=== PATIENT | female | born 1960 | race Caucasian/White ===

== ENCOUNTER 2020-03-30 18:04 | Inpatient (IN) | payer BC, OTHER ==
[~2020-03-30] VITALS: Ht 157.5 cm; Wt 87.3 kg
--- NOTE | 2020-03-30 18:27 | NUR ---
BIB EMS FOR SOB THAT STARTED TODAY, EMS REPORTS SPO2 35% AND UNRESPONSIVE. PT ON CPAP PER EMS. PT ON BIPAP A&OX4. TOLERATING WELL, RR RAPID 43. REPORTS NO OTHER MEDICAL HX OTHER THAN METH USE. PT IN BED IN [facility] WITH CONT BENDER MACHINE, SPO2, BP Q 30 MIN, SIDE RAILS UP X2, CALL LIGHT IN REACH. WENT OVER PLAN OF CARE FROM ORDER LIST, AGREEWS TO PLAN OF CARE. XRAY IN ROOM . LAB IN ROOM.
[2020-03-30] MEDS ORDERED: SODIUM CHLORIDE FLUSH 10ML SYR IVF ONE (18:30)
[2020-03-30] MEDS ORDERED: SODIUM CHLORIDE 0.9% 1,000ML IVBOLUS ONE ×2 (19:00→20:30)
--- NOTE | 2020-03-30 19:01 | NUR ---
RECEIVED REPORT from day shift RN. pt a&ox4, requesting water. on bipap 25/11 100% o2. sats 97%, hyppotensive. RR 48bpm, diminished bs bilaterally. waiting on redraw of ABG
[2020-03-30 19:07] LABS: ALANINE AMINOTRANSFERASE 16 U/L (12-78); ALBUMIN 2.4 g/dL (3.4-5.0); ANION GAP 10 mmol/L (5-15); CALCIUM 7.7 mg/dL (8.5-10.1); CHLORIDE 108 mmol/L (98-107); CREATININE 1.73 mg/dL (0.55-1.02)
[2020-03-30 19:11] LABS: ALKALINE PHOSPHATASE 86 U/L (45-117); BILIRUBIN,TOTAL 0.6 mg/dL (0.2-1.0); TOTAL PROTEIN 6.5 g/dL (6.4-8.2); TROPONIN I 0.116 ng/mL (0.000-0.045)
[2020-03-30 19:13] LABS: BASOPHILS % (AUTO) 0 % (0-1); EOSINOPHILS % (AUTO) 0 % (1-7); LYMPHOCYTES % (AUTO) 13 % (22-44); MEAN CORPUSCULAR HEMOGLOBIN 28.7 pg (27.0-34.8); MEAN CORPUSCULAR HGB CONC 33.4 g/dL (32.4-35.8); MEAN PLATELET VOLUME 9.6 fL (7.4-10.4); MONOCYTES % (AUTO) 5 % (2-9); NEUTROPHILS % (AUTO) 82 % (42-75); PLATELET COUNT 250 x10^3/uL (130-400); RED BLOOD COUNT 4.62 x10^6/uL (3.82-5.3); RED CELL DISTRIBUTION WIDTH 13.4 % (9.6-15.2)
[2020-03-30 19:14] LABS: MD NO
--- NOTE | 2020-03-30 19:20 | NUR ---
PT requested we talk to roommate and update to situation. roommate updated via phone. pt a&ox4 at this time. on bipap
--- NOTE | 2020-03-30 19:30 | NUR ---
MD to bedside to assess pts status. pt assisted to sit up in bed. per MD, to give more ivf, for hypotensive BP. 96/67. piv intact, and flushes easy to left hand, and to right hand.
--- NOTE | 2020-03-30 19:35 | NUR ---
lab to bedside to re draw the ABG.
[2020-03-30] MEDS ORDERED: CEFTRIAXONE PMX 1GM/50ML 50 ML ONE (19:49)
[2020-03-30] MEDS ORDERED: CEFTRIAXONE PMX 1GM/50ML 50 ML IVPB ONE (20:00)
[2020-03-30] MEDS ORDERED: AZITHROMYCIN 500 MG in SODIUM CHLORIDE 0.9% 250 ML IVPB ONE (20:00)
--- NOTE | 2020-03-30 20:26 | NUR ---
MD updated to pts bp, 2nd liter of NS fluids hung, and antibiotics hung. pt awake and sitting up in bed. hypotensive, but good HR. MD aware.
--- NOTE | 2020-03-30 20:28 | NUR ---
pt sitting up, in position of comfort, says she wants to go home, and when will we be done with treatment. reoriented her to the treatment and need to stay in hospital for further evaluation. she verbalized understanding.
[2020-03-30] MEDS ORDERED: SODIUM CHLORIDE FLUSH 10ML SYR IVF PRN (20:30)
--- NOTE | 2020-03-30 20:56 | NUR ---
pt sleeping in bed. on cr monitor, tachypnea, but moving good air and good aeration. 96% on o2 sat monitor. remains on bipap
[2020-03-30] MEDS ORDERED: PROMETHAZINE 25 MG/ML, 1ML IM PRN (21:00)
[2020-03-30] MEDS: SODIUM CHLORIDE 0.9% 1,000 ML IV SCH (21:00)
[2020-03-30] MEDS ORDERED: ONDANSETRON 2MG/ML, 2ML IVPush PRN (21:00)
[2020-03-30] MEDS ORDERED: ONDANSETRON ODT 4 MG PO PRN (21:00)
[2020-03-30] MEDS ORDERED: BISACODYL 10 MG SUPP PR PRN (21:00)
[2020-03-30] MEDS ORDERED: morphine SULFATE 10 MG/ML, 1ML IVPush PRN (21:00)
[2020-03-30] MEDS ORDERED: FAMOTIDINE 20 MG/2 ML IVPush SCH (21:00)
[2020-03-30] MEDS ORDERED: DOCUSATE 100 MG CAPSULE PO PRN (21:00)
[2020-03-30] MEDS ORDERED: hydrALAzine 20 MG/ML, 1ML IVPush PRN (21:00)
--- NOTE | 2020-03-30 21:10 | NUR ---
pt to be admitted to ICU. resting in position of comfort. airway open, and good aeration and oxygenation on continuous bipap. on cr monitor. remains tachypneic.
[2020-03-30] MEDS ORDERED: ENOXAPARIN 40 MG/0.4 ML ONE (21:17)
[2020-03-30] MEDS ORDERED: FAMOTIDINE 20 MG/2 ML ONE (21:17)
[2020-03-30] MEDS ORDERED: DEXAMETHASONE 4 MG/ML, 1ML ONE (21:17)
[2020-03-30] MEDS: DEXAMETHASONE 4 MG/ML, 1ML IVPush SCH (21:22)
[2020-03-30] MEDS: ENOXAPARIN 40 MG/0.4 ML SQ SCH (21:25)
--- NOTE | 2020-03-30 21:33 | NUR ---
ICU MD to eval pt and speak with her. pt sitting in position of comfort in [facility], on cr monitor, continues with tachypnea. o2 sats 95% on bipap. meds given.
--- NOTE | 2020-03-30 22:15 | NUR ---
pt awake and alert, bedpan provided and pt voided x1. clear, yellow urine, large amount. PIV site intact,no redness or swelling. ivf on tko rate only. pt remains on bipap
[2020-03-30] MEDS: ASCORBIC ACID 500 MG TABLET PO SCH (23:14)
[2020-03-31 00:49] LABS: RAPID INFLUENZA A Negative (Negative); RAPID INFLUENZA B Negative (Negative)
[2020-03-31 04:05] LABS: MICROSCOPIC INDICATED
[2020-03-31 04:10] LABS: AMPHETAMINE SCREEN, URINE Positive (Negative); BARBITURATE SCREEN, URINE Negative (Negative); BENZODIAZEPINE SCREEN, URINE Negative (Negative); CANNABINOID SCREEN, URINE Negative (Negative); COCAINE SCREEN, URINE Negative (Negative); METHADONE SCREEN, URINE Negative (Negative); OPIATE SCREEN, URINE Negative (Negative)
[2020-03-31 04:33] LABS: BASOPHILS % (AUTO) 0 % (0-1); EOSINOPHILS % (AUTO) 0 % (1-7); LYMPHOCYTES % (AUTO) 11 % (22-44); MEAN CORPUSCULAR HEMOGLOBIN 29.3 pg (27.0-34.8); MEAN PLATELET VOLUME 9.5 fL (7.4-10.4); MONOCYTES % (AUTO) 3 % (2-9); NEUTROPHILS % (AUTO) 86 % (42-75); PLATELET COUNT 249 x10^3/uL (130-400); RED BLOOD COUNT 4.35 x10^6/uL (3.82-5.3); RED CELL DISTRIBUTION WIDTH 13.7 % (9.6-15.2)
[2020-03-31 04:39] LABS: ALBUMIN 2.3 g/dL (3.4-5.0); ANION GAP 8 mmol/L (5-15); CALCIUM 7.7 mg/dL (8.5-10.1); CHLORIDE 110 mmol/L (98-107)
[2020-03-31 04:42] LABS: MD NO
[2020-03-31 04:49] LABS: ALANINE AMINOTRANSFERASE 16 U/L (12-78); ALKALINE PHOSPHATASE 84 U/L (45-117); BILIRUBIN,TOTAL 0.4 mg/dL (0.2-1.0); CHOL/HDL RATIO 6.1; CHOLESTEROL, TOTAL 140 mg/dL (140-239); CREATININE 1.16 mg/dL (0.55-1.02); HDL CHOL % 16 % (28-40); HDL CHOLESTEROL (DIRECT) 23 mg/dL (40-60); LDL CHOLESTEROL,CALCULATED 81 mg/dL (54-169); LDL/HDL RATIO 3.5 (0.5-3.0); TOTAL PROTEIN 6.5 g/dL (6.4-8.2); TRIGLYCERIDES 180 mg/dL (50-200); VLDL CHOLESTEROL 36 mg/dL (0-25)
[2020-03-31] MEDS: ENOXAPARIN 40 MG/0.4 ML SQ SCH ×2 (09:00→21:06)
[2020-03-31] MEDS ORDERED: MIDAZOLAM 1 MG/ML, 5ML ONE ×3 (10:33→16:29)
[2020-03-31] MEDS ORDERED: ETOMIDATE 20 MG/10 ML IVPush ONE (11:20)
[2020-03-31] MEDS ORDERED: MIDAZOLAM 1 MG/ML, 5ML IVPush ONE ×2 (11:20→12:30)
[2020-03-31] MEDS: PROPOFOL 100 ML IV PRN ×4 (11:45→22:44)
[2020-03-31] MEDS: SODIUM CHLORIDE 0.9% 1,000 ML IV SCH (11:55)
[2020-03-31] MEDS ORDERED: LIDOCAINE-MPF 1%, 2ML ENDO PRN (12:00)
[2020-03-31] MEDS ORDERED: PHARMACY MAY ADJ FOR RENAL FX MC SCH (12:00)
[2020-03-31] MEDS ORDERED: FENTANYL PF 1,000 MCG in SODIUM CHLORIDE 0.9% 80 ML IV PRN (12:30)
[2020-03-31] MEDS: ZINC SULFATE 220 MG CAPSULE PO SCH (13:33)
[2020-03-31] MEDS: ASCORBIC ACID 500 MG TABLET PO SCH ×3 (13:34→21:05)
[2020-03-31] MEDS: PANTOPRAZOLE 40 MG IV IV SCH (13:37)
--- NOTE | 2020-03-31 15:35 | NUR ---
TF: Vital HP: goal on propofol: 45 ml/hr, off propofol: 55 ml/hr Addendum: 03/31/20 at [address] Amended: Links added.
[2020-03-31] MEDS: FENTANYL PF 1,000 MCG in SODIUM CHLORIDE 0.9% 80 ML IV PRN (15:45)
[2020-03-31] MEDS: CHOLECALCIFEROL 5,000u TAB PO SCH (15:45)
[2020-03-31] MEDS ORDERED: PROPOFOL 10 MG/ML, 100ML IV ONE (16:29)
[2020-03-31] MEDS ORDERED: ETOMIDATE 20 MG/10 ML ONE (16:29)
[2020-03-31] MEDS: AZITHROMYCIN 500 MG in SODIUM CHLORIDE 0.9% 250 ML IV SCH (18:25)
[2020-03-31] MEDS ORDERED: PHENYLEPHRINE 50 MG in SODIUM CHLORIDE 0.9% 245 ML IV PRN (18:30)
[2020-03-31] MEDS: THIAMINE 100 MG in SODIUM CHLORIDE 0.9% 50 ML IV SCH (18:55)
[2020-03-31] MEDS: CEFTRIAXONE PMX 1GM/50ML 50 ML IV SCH (21:05)
[2020-03-31] MEDS: DEXAMETHASONE 4 MG/ML, 1ML IVPush SCH (21:06)
[2020-04-01] MEDS: PROPOFOL 100 ML IV PRN ×5 (03:48→21:03)
[2020-04-01 05:30] LABS: BASOPHILS % (AUTO) 0 % (0-1); EOSINOPHILS % (AUTO) 0 % (1-7); LYMPHOCYTES % (AUTO) 10 % (22-44); MD NO; MEAN CORPUSCULAR HEMOGLOBIN 29.3 pg (27.0-34.8); MEAN CORPUSCULAR HGB CONC 33.8 g/dL (32.4-35.8); MEAN PLATELET VOLUME 9.4 fL (7.4-10.4); MONOCYTES % (AUTO) 5 % (2-9); NEUTROPHILS % (AUTO) 86 % (42-75); PLATELET COUNT 263 x10^3/uL (130-400); RED BLOOD COUNT 4.22 x10^6/uL (3.82-5.3); RED CELL DISTRIBUTION WIDTH 13.7 % (9.6-15.2)
[2020-04-01 05:34] LABS: ANION GAP 6 mmol/L (5-15); CALCIUM 8.2 mg/dL (8.5-10.1); CHLORIDE 113 mmol/L (98-107); CREATININE 0.81 mg/dL (0.55-1.02)
[2020-04-01] MEDS: FENTANYL PF 1,000 MCG in SODIUM CHLORIDE 0.9% 80 ML IV PRN ×2 (08:35→23:46)
[2020-04-01] MEDS ORDERED: PHARMACY INSTRUCTION MC PRN (09:00)
[2020-04-01] MEDS ORDERED: REMDESIVIR 200 MG in SODIUM CHLORIDE 0.9% 250 ML IVPB ONE (10:00)
[2020-04-01] MEDS: ENOXAPARIN 40 MG/0.4 ML SQ SCH ×2 (11:58→21:00)
[2020-04-01] MEDS: ASCORBIC ACID 500 MG TABLET PO SCH ×3 (11:58→21:07)
[2020-04-01] MEDS: CHOLECALCIFEROL 5,000u TAB PO SCH (11:58)
[2020-04-01] MEDS: ZINC SULFATE 220 MG CAPSULE PO SCH (11:58)
[2020-04-01] MEDS ORDERED: VECURONIUM 10 MG IVPush ONE (14:30)
[2020-04-01] MEDS: PANTOPRAZOLE 40 MG IV IV SCH (15:16)
[2020-04-01] MEDS: VECURONIUM 50 MG in SODIUM CHLORIDE 0.9% 50 ML IV PRN ×2 (15:52→21:38)
[2020-04-01] MEDS: AZITHROMYCIN 500 MG in SODIUM CHLORIDE 0.9% 250 ML IV SCH (17:41)
[2020-04-01] MEDS: THIAMINE 100 MG in SODIUM CHLORIDE 0.9% 50 ML IV SCH (17:41)
[2020-04-01] MEDS: CEFTRIAXONE PMX 1GM/50ML 50 ML IV SCH (21:06)
[2020-04-01] MEDS: DEXAMETHASONE 4 MG/ML, 1ML IVPush SCH (21:07)
[2020-04-02] MEDS: PROPOFOL 100 ML IV PRN ×6 (00:26→23:17)
[2020-04-02 04:24] LABS: PROTHROMBIN TIME 10.6 Seconds (9.6-11.5)
[2020-04-02 04:25] LABS: BASOPHILS % (AUTO) 0 % (0-1); EOSINOPHILS % (AUTO) 0 % (1-7); LYMPHOCYTES % (AUTO) 10 % (22-44); MEAN CORPUSCULAR HEMOGLOBIN 29.7 pg (27.0-34.8); MEAN CORPUSCULAR HGB CONC 33.6 g/dL (32.4-35.8); MEAN PLATELET VOLUME 9.4 fL (7.4-10.4); MONOCYTES % (AUTO) 5 % (2-9); NEUTROPHILS % (AUTO) 85 % (42-75); PLATELET COUNT 248 x10^3/uL (130-400); RED BLOOD COUNT 4.17 x10^6/uL (3.82-5.3); RED CELL DISTRIBUTION WIDTH 13.5 % (9.6-15.2)
[2020-04-02 04:26] LABS: MD NO
[2020-04-02 04:29] LABS: CHLORIDE 112 mmol/L (98-107)
[2020-04-02 04:36] LABS: ANION GAP 3 mmol/L (5-15); BILIRUBIN,TOTAL 0.4 mg/dL (0.2-1.0); CALCIUM 7.9 mg/dL (8.5-10.1); CREATININE 0.66 mg/dL (0.55-1.02)
[2020-04-02] MEDS: VECURONIUM 50 MG in SODIUM CHLORIDE 0.9% 50 ML IV PRN ×2 (07:12→22:20)
[2020-04-02] MEDS: ENOXAPARIN 40 MG/0.4 ML SQ SCH ×2 (08:11→20:25)
[2020-04-02] MEDS: PANTOPRAZOLE 40 MG IV IV SCH (08:12)
[2020-04-02] MEDS: ASCORBIC ACID 500 MG TABLET PO SCH ×3 (08:42→20:25)
[2020-04-02] MEDS: ZINC SULFATE 220 MG CAPSULE PO SCH (08:42)
[2020-04-02] MEDS: CHOLECALCIFEROL 5,000u TAB PO SCH (08:43)
[2020-04-02] MEDS: REMDESIVIR 100 MG in SODIUM CHLORIDE 0.9% 250 ML IVPB SCH (10:00)
[2020-04-02 10:33] LABS: CALCIUM 8.2 mg/dL (8.5-10.1)
[2020-04-02 10:36] LABS: ALKALINE PHOSPHATASE 87 U/L (45-117); BILIRUBIN,TOTAL 0.5 mg/dL (0.2-1.0)
[2020-04-02 10:44] LABS: ALANINE AMINOTRANSFERASE 20 U/L (12-78); ALBUMIN 2.4 g/dL (3.4-5.0); ANION GAP 4 mmol/L (5-15); CHLORIDE 111 mmol/L (98-107); CREATININE 0.66 mg/dL (0.55-1.02); TOTAL PROTEIN 6.8 g/dL (6.4-8.2)
[2020-04-02] MEDS: AZITHROMYCIN 500 MG in SODIUM CHLORIDE 0.9% 250 ML IV SCH (16:24)
[2020-04-02] MEDS: THIAMINE 100MG TABLET PO SCH (16:24)
[2020-04-02] MEDS ORDERED: VECURONIUM 10 MG ONE (16:26)
[2020-04-02] MEDS ORDERED: VECURONIUM 10 MG IVPush ONE (16:30)
[2020-04-02] MEDS: DEXAMETHASONE 4 MG/ML, 1ML IVPush SCH (20:25)
[2020-04-02] MEDS: CEFTRIAXONE PMX 1GM/50ML 50 ML IV SCH (20:29)
[2020-04-03] MEDS ORDERED: LABETALOL 5MG/ML, 20ML IVPush PRN
[2020-04-03] MEDS: FENTANYL PF 1,000 MCG in SODIUM CHLORIDE 0.9% 80 ML IV PRN ×3 (00:19→17:11)
[2020-04-03] MEDS: PROPOFOL 100 ML IV PRN (02:55)
[2020-04-03 03:24] LABS: ANION GAP 3 mmol/L (5-15); CALCIUM 7.7 mg/dL (8.5-10.1); CHLORIDE 112 mmol/L (98-107); CREATININE 0.75 mg/dL (0.55-1.02)
[2020-04-03 03:25] LABS: BILIRUBIN,TOTAL 0.4 mg/dL (0.2-1.0); TRIGLYCERIDES 349 mg/dL (50-200)
[2020-04-03 03:26] LABS: MEAN CORPUSCULAR HEMOGLOBIN 28.9 pg (27.0-34.8); MEAN CORPUSCULAR HGB CONC 32.8 g/dL (32.4-35.8); MEAN PLATELET VOLUME 9.4 fL (7.4-10.4); PLATELET COUNT 284 x10^3/uL (130-400); RED BLOOD COUNT 4.31 x10^6/uL (3.82-5.3); RED CELL DISTRIBUTION WIDTH 14.1 % (9.6-15.2)
[2020-04-03 04:20] LABS: MD YES
[2020-04-03 04:23] LABS: BANDS%(MANUAL) 6 % (0-7); LYMPH#(MANUAL) 0.94 x10^3/uL (1-3.4); LYMPHS% (MANUAL) 8 % (22-44); METAMYELOCYTES# (MANUAL) 0.23 x10^3/uL (0-0); METAMYELOCYTES% (MANUAL) 2 % (0-1); MONOS#(MANUAL) 0.35 x10^3/uL (0.3-2.7); MONOS% (MANUAL) 3 % (2-9); MYELOCYTES# (MANUAL) 0.12 x10^3/uL (0-0); MYELOCYTES% (MANUAL) 1 % (0-0); SEG#(MANUAL) 9.36 x10^3/uL (1.8-6.8); SEGS% (MANUAL) 80 % (42-75)
[2020-04-03 04:24] LABS: ANISOCYTOSIS 1+; MICROCYTOSIS 1+; POLYCHROMASIA 1+
[2020-04-03 04:25] LABS: <PLATELET ESTIMATE> ADEQUATE; LARGE PLATELETS 1+
[2020-04-03 05:30] LABS: D-DIMER 1.81 ug/mlFEU (0.00-0.52)
[2020-04-03] MEDS: ENOXAPARIN 40 MG/0.4 ML SQ SCH ×2 (09:00→20:23)
[2020-04-03] MEDS: PANTOPRAZOLE 40 MG IV IV SCH (09:02)
[2020-04-03] MEDS: CHOLECALCIFEROL 5,000u TAB PO SCH (09:02)
[2020-04-03] MEDS: ZINC SULFATE 220 MG CAPSULE PO SCH (09:03)
[2020-04-03] MEDS: ASCORBIC ACID 500 MG TABLET PO SCH ×3 (09:03→20:23)
[2020-04-03] MEDS: REMDESIVIR 100 MG in SODIUM CHLORIDE 0.9% 250 ML IVPB SCH (10:19)
[2020-04-03] MEDS ORDERED: MIDAZOLAM HCL 50 MG in SODIUM CHLORIDE 0.9% 40 ML IV PRN (11:30)
[2020-04-03 14:48] LABS: ALANINE AMINOTRANSFERASE 23 U/L (12-78); ALBUMIN 2.1 g/dL (3.4-5.0); ANION GAP 5 mmol/L (5-15); CALCIUM 8.1 mg/dL (8.5-10.1); CHLORIDE 113 mmol/L (98-107); CREATININE 0.75 mg/dL (0.55-1.02)
[2020-04-03 14:50] LABS: ALKALINE PHOSPHATASE 70 U/L (45-117); BILIRUBIN,TOTAL 0.4 mg/dL (0.2-1.0); TOTAL PROTEIN 5.9 g/dL (6.4-8.2)
[2020-04-03] MEDS: MIDAZOLAM HCL 100 MG in SODIUM CHLORIDE 0.9% 80 ML IV PRN (15:59)
[2020-04-03] MEDS: THIAMINE 100MG TABLET PO SCH (16:14)
[2020-04-03] MEDS ORDERED: AZITHROMYCIN 500 MG in SODIUM CHLORIDE 0.9% 250 ML IV SCH (17:00)
[2020-04-03] MEDS: CEFTRIAXONE PMX 1GM/50ML 50 ML IV SCH (20:22)
[2020-04-03] MEDS: DEXAMETHASONE 4 MG/ML, 1ML IVPush SCH (20:23)
[2020-04-04 02:53] LABS: BASOPHILS % (AUTO) 0 % (0-1); EOSINOPHILS % (AUTO) 0 % (1-7); LYMPHOCYTES % (AUTO) 7 % (22-44); MEAN CORPUSCULAR HEMOGLOBIN 29.5 pg (27.0-34.8); MEAN CORPUSCULAR HGB CONC 33.5 g/dL (32.4-35.8); MEAN PLATELET VOLUME 9.5 fL (7.4-10.4); MONOCYTES % (AUTO) 5 % (2-9); NEUTROPHILS % (AUTO) 88 % (42-75); PLATELET COUNT 269 x10^3/uL (130-400); RED BLOOD COUNT 3.97 x10^6/uL (3.82-5.3); RED CELL DISTRIBUTION WIDTH 13.7 % (9.6-15.2)
[2020-04-04 02:57] LABS: MD NO
[2020-04-04 03:01] LABS: ANION GAP 2 mmol/L (5-15); CALCIUM 7.9 mg/dL (8.5-10.1); CHLORIDE 113 mmol/L (98-107)
[2020-04-04] MEDS: FENTANYL PF 1,000 MCG in SODIUM CHLORIDE 0.9% 80 ML IV PRN ×3 (03:44→22:34)
[2020-04-04] MEDS: ENOXAPARIN 40 MG/0.4 ML SQ SCH ×2 (08:42→20:01)
[2020-04-04] MEDS: ASCORBIC ACID 500 MG TABLET PO SCH ×3 (08:42→20:01)
[2020-04-04] MEDS: CHOLECALCIFEROL 5,000u TAB PO SCH (08:42)
[2020-04-04] MEDS: PANTOPRAZOLE 40 MG IV IV SCH (08:42)
[2020-04-04] MEDS: ZINC SULFATE 220 MG CAPSULE PO SCH (08:42)
[2020-04-04] MEDS ORDERED: FUROSEMIDE 40 MG/4 ML IV ONE (09:30)
[2020-04-04] MEDS: REMDESIVIR 100 MG in SODIUM CHLORIDE 0.9% 250 ML IVPB SCH (10:04)
[2020-04-04] MEDS: MIDAZOLAM HCL 100 MG in SODIUM CHLORIDE 0.9% 80 ML IV PRN (10:06)
[2020-04-04] MEDS: THIAMINE 100MG TABLET PO SCH (17:21)
[2020-04-04] MEDS: DEXAMETHASONE 4 MG/ML, 1ML IVPush SCH (20:01)
[2020-04-04] MEDS: CEFTRIAXONE PMX 1GM/50ML 50 ML IV SCH (20:01)
[2020-04-05 04:05] LABS: ANION GAP 5 mmol/L (5-15); BASOPHILS % (AUTO) 0 % (0-1); CALCIUM 7.5 mg/dL (8.5-10.1); CHLORIDE 111 mmol/L (98-107); CREATININE 0.75 mg/dL (0.55-1.02); EOSINOPHILS % (AUTO) 0 % (1-7); LYMPHOCYTES % (AUTO) 7 % (22-44); MEAN CORPUSCULAR HEMOGLOBIN 28.8 pg (27.0-34.8); MEAN CORPUSCULAR HGB CONC 33.1 g/dL (32.4-35.8); MEAN PLATELET VOLUME 9.6 fL (7.4-10.4); MONOCYTES % (AUTO) 5 % (2-9); NEUTROPHILS % (AUTO) 89 % (42-75); PLATELET COUNT 283 x10^3/uL (130-400); RED BLOOD COUNT 4.09 x10^6/uL (3.82-5.3)
[2020-04-05 04:12] LABS: MD NO
[2020-04-05 05:00] LABS: ALBUMIN 2.1 g/dL (3.4-5.0); BILIRUBIN, DIRECT 0.2 mg/dL (0.1-0.2)
[2020-04-05 05:02] LABS: BILIRUBIN,INDIRECT 0.3 mg/dL (0.0-2.0); BILIRUBIN,TOTAL 0.5 mg/dL (0.2-1.0); TOTAL PROTEIN 5.9 g/dL (6.4-8.2)
[2020-04-05] MEDS: MIDAZOLAM HCL 100 MG in SODIUM CHLORIDE 0.9% 80 ML IV PRN ×2 (05:41→17:53)
[2020-04-05] MEDS: FENTANYL PF 1,000 MCG in SODIUM CHLORIDE 0.9% 80 ML IV PRN ×3 (05:42→20:38)
[2020-04-05] MEDS: CHOLECALCIFEROL 5,000u TAB PO SCH (10:15)
[2020-04-05] MEDS: ZINC SULFATE 220 MG CAPSULE PO SCH (10:15)
[2020-04-05] MEDS: ASCORBIC ACID 500 MG TABLET PO SCH ×3 (10:15→20:18)
[2020-04-05] MEDS: ENOXAPARIN 40 MG/0.4 ML SQ SCH ×2 (10:15→20:21)
[2020-04-05] MEDS: PANTOPRAZOLE 40 MG IV IV SCH (10:15)
[2020-04-05] MEDS: REMDESIVIR 100 MG in SODIUM CHLORIDE 0.9% 250 ML IVPB SCH (10:33)
[2020-04-05] MEDS: FUROSEMIDE 20 MG/2 ML IV SCH ×2 (10:34→17:04)
[2020-04-05 13:01] LABS: ALBUMIN 2.1 g/dL (3.4-5.0); ANION GAP 3 mmol/L (5-15); CALCIUM 7.9 mg/dL (8.5-10.1); CHLORIDE 111 mmol/L (98-107)
[2020-04-05 13:05] LABS: ALANINE AMINOTRANSFERASE 17 U/L (12-78); ALKALINE PHOSPHATASE 70 U/L (45-117); BILIRUBIN,TOTAL 0.8 mg/dL (0.2-1.0); CREATININE 0.64 mg/dL (0.55-1.02); TOTAL PROTEIN 5.8 g/dL (6.4-8.2)
[2020-04-05] MEDS ORDERED: VECURONIUM 10 MG ONE (15:13)
[2020-04-05] MEDS ORDERED: PROPOFOL 100 ML IV ONE (15:32)
[2020-04-05] MEDS: VECURONIUM 50 MG in SODIUM CHLORIDE 0.9% 50 ML IV PRN (15:55)
[2020-04-05] MEDS: PROPOFOL 100 ML IV PRN (15:57)
[2020-04-05] MEDS ORDERED: VECURONIUM 10 MG IVPush ONE (16:00)
[2020-04-05] MEDS: THIAMINE 100MG TABLET PO SCH (17:04)
[2020-04-05] MEDS: DEXAMETHASONE 4 MG/ML, 1ML IVPush SCH (20:18)
[2020-04-05] MEDS: CEFTRIAXONE PMX 1GM/50ML 50 ML IV SCH (20:20)
[2020-04-06] MEDS: FENTANYL PF 1,000 MCG in SODIUM CHLORIDE 0.9% 80 ML IV PRN (01:10)
[2020-04-06 04:38] LABS: BASOPHILS % (AUTO) 0 % (0-1); EOSINOPHILS % (AUTO) 0 % (1-7); LYMPHOCYTES % (AUTO) 6 % (22-44); MEAN CORPUSCULAR HEMOGLOBIN 29.1 pg (27.0-34.8); MEAN CORPUSCULAR HGB CONC 32.9 g/dL (32.4-35.8); MEAN PLATELET VOLUME 9.4 fL (7.4-10.4); MONOCYTES % (AUTO) 4 % (2-9); NEUTROPHILS % (AUTO) 91 % (42-75); PLATELET COUNT 274 x10^3/uL (130-400); RED BLOOD COUNT 4.22 x10^6/uL (3.82-5.3)
[2020-04-06 04:49] LABS: BILIRUBIN, DIRECT 0.2 mg/dL (0.1-0.2); BILIRUBIN,INDIRECT 0.4 mg/dL (0.0-2.0); BILIRUBIN,TOTAL 0.6 mg/dL (0.2-1.0); TOTAL PROTEIN 6.2 g/dL (6.4-8.2)
[2020-04-06 04:52] LABS: ANION GAP 2 mmol/L (5-15); CHLORIDE 109 mmol/L (98-107); TRIGLYCERIDES 161 mg/dL (50-200)
[2020-04-06 05:41] LABS: MD SCAN
[2020-04-06] MEDS: ENOXAPARIN 40 MG/0.4 ML SQ SCH ×2 (08:37→20:52)
[2020-04-06] MEDS: PANTOPRAZOLE 40 MG IV IV SCH (08:37)
[2020-04-06] MEDS: ASCORBIC ACID 500 MG TABLET PO SCH ×3 (08:37→20:52)
[2020-04-06] MEDS: ZINC SULFATE 220 MG CAPSULE PO SCH (08:38)
[2020-04-06] MEDS: CHOLECALCIFEROL 5,000u TAB PO SCH (08:38)
[2020-04-06] MEDS: PROPOFOL 100 ML IV PRN (13:18)
[2020-04-06] MEDS ORDERED: VECURONIUM 10 MG ONE (15:33)
[2020-04-06] MEDS: THIAMINE 100MG TABLET PO SCH (16:50)
[2020-04-06] MEDS: FENTANYL PF 2,500 MCG in SODIUM CHLORIDE 0.9% 200 ML IV PRN (16:55)
[2020-04-06] MEDS ORDERED: VECURONIUM 10 MG IVPush ONE (18:00)
[2020-04-06] MEDS: MIDAZOLAM HCL 100 MG in SODIUM CHLORIDE 0.9% 80 ML IV PRN (20:23)
[2020-04-06] MEDS: VECURONIUM 50 MG in SODIUM CHLORIDE 0.9% 50 ML IV PRN ×2 (20:24)
[2020-04-06] MEDS: DEXAMETHASONE 4 MG/ML, 1ML IVPush SCH (20:52)
[2020-04-07 04:19] LABS: BASOPHILS % (AUTO) 0 % (0-1); EOSINOPHILS % (AUTO) 0 % (1-7); LYMPHOCYTES % (AUTO) 6 % (22-44); MEAN CORPUSCULAR HEMOGLOBIN 28.9 pg (27.0-34.8); MEAN PLATELET VOLUME 9.6 fL (7.4-10.4); MONOCYTES % (AUTO) 3 % (2-9); NEUTROPHILS % (AUTO) 91 % (42-75); PLATELET COUNT 315 x10^3/uL (130-400); RED BLOOD COUNT 4.37 x10^6/uL (3.82-5.3); RED CELL DISTRIBUTION WIDTH 13.8 % (9.6-15.2)
[2020-04-07 04:20] LABS: MD NO
[2020-04-07 04:37] LABS: ALBUMIN 2.1 g/dL (3.4-5.0); ANION GAP 2 mmol/L (5-15); CALCIUM 8.4 mg/dL (8.5-10.1); CHLORIDE 103 mmol/L (98-107)
[2020-04-07 04:43] LABS: ALANINE AMINOTRANSFERASE 24 U/L (12-78); ALKALINE PHOSPHATASE 73 U/L (45-117); BILIRUBIN, DIRECT 0.2 mg/dL (0.1-0.2); BILIRUBIN,INDIRECT 0.4 mg/dL (0.0-2.0); BILIRUBIN,TOTAL 0.6 mg/dL (0.2-1.0); CREATININE 0.59 mg/dL (0.55-1.02); TOTAL PROTEIN 6.3 g/dL (6.4-8.2)
[2020-04-07] MEDS: PROPOFOL 100 ML IV PRN ×2 (07:11→13:02)
[2020-04-07] MEDS: VECURONIUM 50 MG in SODIUM CHLORIDE 0.9% 50 ML IV PRN (07:11)
[2020-04-07] MEDS ORDERED: VANCOMYCIN PER PHARMACY MC PRN (07:30)
[2020-04-07] MEDS ORDERED: INSULIN GLARGINE 100 UNITS/ML, PEN SQ-INSULIN SCH (07:30)
[2020-04-07] MEDS ORDERED: INSULIN LISPRO 100 UNITS/ML, PEN SQ-INSULIN SCH (07:30)
[2020-04-07] MEDS ORDERED: PHARMACOKINETIC MONITORING MC PRN (08:00)
[2020-04-07] MEDS ORDERED: PHARMACOKINETIC CONSULTATION MC ONE (08:00)
[2020-04-07] MEDS ORDERED: VANCOMYCIN 2,500 MG in SODIUM CHLORIDE 0.9% 500 ML IV ONE (08:00)
[2020-04-07] MEDS: INSULIN LISPRO 100 UNITS/ML, PEN SQ-INSULIN SCH ×3 (09:20→21:00)
[2020-04-07] MEDS: PIPERACILLIN/TAZO/PMX 3.375GM 50 ML IV SCH ×3 (09:23→21:08)
[2020-04-07] MEDS: INSULIN GLARGINE 100 UNITS/ML, PEN SQ-INSULIN SCH ×2 (09:23→21:10)
[2020-04-07] MEDS: PANTOPRAZOLE 40 MG IV IV SCH (09:24)
[2020-04-07] MEDS: ENOXAPARIN 40 MG/0.4 ML SQ SCH ×2 (09:24→21:09)
[2020-04-07] MEDS: ZINC SULFATE 220 MG CAPSULE PO SCH (09:32)
[2020-04-07] MEDS: CHOLECALCIFEROL 5,000u TAB PO SCH (09:32)
[2020-04-07] MEDS: ASCORBIC ACID 500 MG TABLET PO SCH ×3 (09:32→21:08)
[2020-04-07 11:14] LABS: MICROSCOPIC INDICATED
[2020-04-07] MEDS: ARTIFICIAL TEARS 15 DROP/ML BOTTLE EACHEYE PRN (14:15)
[2020-04-07] MEDS: THIAMINE 100MG TABLET PO SCH (15:33)
[2020-04-07] MEDS: DEXAMETHASONE 4 MG/ML, 1ML IVPush SCH (21:08)
[2020-04-07] MEDS: FENTANYL PF 2,500 MCG in SODIUM CHLORIDE 0.9% 200 ML IV PRN (23:08)
[2020-04-07] MEDS: MIDAZOLAM HCL 100 MG in SODIUM CHLORIDE 0.9% 80 ML IV PRN (23:12)
[2020-04-08] MEDS: PIPERACILLIN/TAZO/PMX 3.375GM 50 ML IV SCH ×4 (03:13→21:27)
[2020-04-08] MEDS: INSULIN LISPRO 100 UNITS/ML, PEN SQ-INSULIN SCH ×4 (03:13→21:38)
[2020-04-08 03:25] LABS: BASOPHILS % (AUTO) 0 % (0-1); EOSINOPHILS % (AUTO) 0 % (1-7); LYMPHOCYTES % (AUTO) 6 % (22-44); MEAN CORPUSCULAR HEMOGLOBIN 29.3 pg (27.0-34.8); MEAN CORPUSCULAR HGB CONC 33.3 g/dL (32.4-35.8); MEAN PLATELET VOLUME 10.3 fL (7.4-10.4); MONOCYTES % (AUTO) 5 % (2-9); NEUTROPHILS % (AUTO) 89 % (42-75); PLATELET COUNT 432 x10^3/uL (130-400); RED BLOOD COUNT 4.45 x10^6/uL (3.82-5.3); RED CELL DISTRIBUTION WIDTH 13.8 % (9.6-15.2)
[2020-04-08 03:35] LABS: ALANINE AMINOTRANSFERASE 31 U/L (12-78); ALBUMIN 2.2 g/dL (3.4-5.0); ANION GAP 2 mmol/L (5-15); BILIRUBIN, DIRECT 0.4 mg/dL (0.1-0.2); CALCIUM 8.4 mg/dL (8.5-10.1); CHLORIDE 101 mmol/L (98-107); CREATININE 0.77 mg/dL (0.55-1.02)
[2020-04-08 03:37] LABS: ALKALINE PHOSPHATASE 76 U/L (45-117); BILIRUBIN,INDIRECT 0.5 mg/dL (0.0-2.0); BILIRUBIN,TOTAL 0.9 mg/dL (0.2-1.0); TOTAL PROTEIN 6.4 g/dL (6.4-8.2)
[2020-04-08] MEDS ORDERED: VANCOMYCIN 2,000 MG in SODIUM CHLORIDE 0.9% 500 ML IV ONE (04:00)
[2020-04-08 04:18] LABS: MD SCAN
[2020-04-08] MEDS: PROPOFOL 100 ML IV PRN ×2 (04:20→17:53)
[2020-04-08] MEDS ORDERED: PANTOPRAZOLE 40MG TABLET PO SCH (06:00)
[2020-04-08] MEDS: FUROSEMIDE 40 MG/4 ML IV SCH (08:24)
[2020-04-08] MEDS: ZINC SULFATE 220 MG CAPSULE PO SCH (08:25)
[2020-04-08] MEDS: ASCORBIC ACID 500 MG TABLET PO SCH ×3 (08:25→21:29)
[2020-04-08] MEDS: ENOXAPARIN 40 MG/0.4 ML SQ SCH ×2 (08:25→21:30)
[2020-04-08] MEDS: CHOLECALCIFEROL 5,000u TAB PO SCH (08:26)
[2020-04-08] MEDS: INSULIN GLARGINE 100 UNITS/ML, PEN SQ-INSULIN SCH ×2 (08:28→21:38)
[2020-04-08] MEDS: NOREPINEPHRINE 8 MG in SODIUM CHLORIDE 0.9% 242 ML IV PRN (09:53)
[2020-04-08] MEDS: METHYLNALTREXONE 12 MG/0.6 ML SYR SQ SCH (11:26)
[2020-04-08] MEDS: THIAMINE 100MG TABLET PO SCH (16:07)
[2020-04-08] MEDS: ARTIFICIAL TEARS 15 DROP/ML BOTTLE EACHEYE PRN (17:58)
[2020-04-08] MEDS: DEXAMETHASONE 4 MG/ML, 1ML IVPush SCH (21:27)
[2020-04-08] MEDS ORDERED: VANCOMYCIN 2,000 MG in SODIUM CHLORIDE 0.9% 500 ML IV SCH (22:00)
[2020-04-09] MEDS: PROPOFOL 100 ML IV PRN ×4 (00:42→19:09)
[2020-04-09] MEDS: MIDAZOLAM HCL 100 MG in SODIUM CHLORIDE 0.9% 80 ML IV PRN (02:42)
[2020-04-09] MEDS: FENTANYL PF 2,500 MCG in SODIUM CHLORIDE 0.9% 200 ML IV PRN ×2 (02:42→20:48)
[2020-04-09] MEDS: PIPERACILLIN/TAZO/PMX 3.375GM 50 ML IV SCH ×4 (03:08→21:50)
[2020-04-09] MEDS: INSULIN LISPRO 100 UNITS/ML, PEN SQ-INSULIN SCH ×4 (03:11→21:12)
[2020-04-09 05:13] LABS: BASOPHILS % (AUTO) 0 % (0-1); EOSINOPHILS % (AUTO) 0 % (1-7); LYMPHOCYTES % (AUTO) 9 % (22-44); MEAN CORPUSCULAR HEMOGLOBIN 29.2 pg (27.0-34.8); MEAN CORPUSCULAR HGB CONC 33.1 g/dL (32.4-35.8); MONOCYTES % (AUTO) 4 % (2-9); NEUTROPHILS % (AUTO) 87 % (42-75); PLATELET COUNT 370 x10^3/uL (130-400); RED BLOOD COUNT 4.38 x10^6/uL (3.82-5.3); RED CELL DISTRIBUTION WIDTH 13.7 % (9.6-15.2)
[2020-04-09 05:22] LABS: ALBUMIN 2.2 g/dL (3.4-5.0); ANION GAP 4 mmol/L (5-15); CALCIUM 8.1 mg/dL (8.5-10.1); CHLORIDE 103 mmol/L (98-107)
[2020-04-09 05:26] LABS: ALANINE AMINOTRANSFERASE 32 U/L (12-78); ALKALINE PHOSPHATASE 72 U/L (45-117); BILIRUBIN, DIRECT 0.2 mg/dL (0.1-0.2); BILIRUBIN,INDIRECT 0.5 mg/dL (0.0-2.0); BILIRUBIN,TOTAL 0.7 mg/dL (0.2-1.0); CREATININE 0.74 mg/dL (0.55-1.02); TOTAL PROTEIN 6.2 g/dL (6.4-8.2); TRIGLYCERIDES 202 mg/dL (50-200)
[2020-04-09 05:44] LABS: MD SCAN
[2020-04-09] MEDS: PANTOPRAZOLE 40 MG IV IVPush SCH (06:18)
[2020-04-09] MEDS: FUROSEMIDE 40 MG/4 ML IV SCH (08:54)
[2020-04-09] MEDS: ENOXAPARIN 40 MG/0.4 ML SQ SCH ×2 (08:54→21:09)
[2020-04-09] MEDS: ASCORBIC ACID 500 MG TABLET PO SCH ×2 (08:54→16:36)
[2020-04-09] MEDS: ZINC SULFATE 220 MG CAPSULE PO SCH (08:55)
[2020-04-09] MEDS: CHOLECALCIFEROL 5,000u TAB PO SCH (08:55)
[2020-04-09] MEDS: ARTIFICIAL TEARS 15 DROP/ML BOTTLE EACHEYE PRN (09:00)
[2020-04-09] MEDS: POLYETHYLENE GLYCOL 17 GM PACKET PO PRN (09:00)
[2020-04-09] MEDS: INSULIN GLARGINE 100 UNITS/ML, PEN SQ-INSULIN SCH ×2 (09:04→21:12)
[2020-04-09] MEDS: VANCOMYCIN 2,000 MG in SODIUM CHLORIDE 0.9% 500 ML IV SCH (16:37)
[2020-04-09] MEDS: THIAMINE 100MG TABLET PO SCH (16:37)
[2020-04-09] MEDS: DEXAMETHASONE 4 MG/ML, 1ML IVPush SCH (21:08)
[2020-04-10] MEDS: PROPOFOL 100 ML IV PRN ×5 (01:22→20:50)
[2020-04-10] MEDS: MIDAZOLAM HCL 100 MG in SODIUM CHLORIDE 0.9% 80 ML IV PRN (03:01)
[2020-04-10] MEDS: PIPERACILLIN/TAZO/PMX 3.375GM 50 ML IV SCH ×4 (03:01→20:03)
[2020-04-10] MEDS: NOREPINEPHRINE 8 MG in SODIUM CHLORIDE 0.9% 242 ML IV PRN (03:02)
[2020-04-10] MEDS: INSULIN LISPRO 100 UNITS/ML, PEN SQ-INSULIN SCH ×4 (03:05→21:29)
[2020-04-10] MEDS ORDERED: PROPOFOL 100 ML ONE (04:58)
[2020-04-10] MEDS: VANCOMYCIN 2,000 MG in SODIUM CHLORIDE 0.9% 500 ML IV SCH (05:08)
[2020-04-10 05:37] LABS: BASOPHILS % (AUTO) 0 % (0-1); EOSINOPHILS % (AUTO) 0 % (1-7); LYMPHOCYTES % (AUTO) 10 % (22-44); MEAN CORPUSCULAR HEMOGLOBIN 28.7 pg (27.0-34.8); MEAN CORPUSCULAR HGB CONC 32.7 g/dL (32.4-35.8); MEAN PLATELET VOLUME 10.4 fL (7.4-10.4); MONOCYTES % (AUTO) 6 % (2-9); NEUTROPHILS % (AUTO) 84 % (42-75); PLATELET COUNT 357 x10^3/uL (130-400); RED BLOOD COUNT 4.47 x10^6/uL (3.82-5.3); RED CELL DISTRIBUTION WIDTH 13.7 % (9.6-15.2)
[2020-04-10 05:38] LABS: MD NO
[2020-04-10 05:47] LABS: ALBUMIN 2.3 g/dL (3.4-5.0); ANION GAP 4 mmol/L (5-15); CALCIUM 8.4 mg/dL (8.5-10.1); CHLORIDE 104 mmol/L (98-107)
[2020-04-10 05:50] LABS: ALANINE AMINOTRANSFERASE 35 U/L (12-78); ALKALINE PHOSPHATASE 70 U/L (45-117); BILIRUBIN, DIRECT 0.2 mg/dL (0.1-0.2); BILIRUBIN,INDIRECT 0.4 mg/dL (0.0-2.0); BILIRUBIN,TOTAL 0.6 mg/dL (0.2-1.0); CREATININE 0.76 mg/dL (0.55-1.02); TOTAL PROTEIN 6.4 g/dL (6.4-8.2)
[2020-04-10] MEDS: PANTOPRAZOLE 40 MG IV IVPush SCH (05:56)
[2020-04-10] MEDS: ENOXAPARIN 40 MG/0.4 ML SQ SCH ×2 (08:40→20:03)
[2020-04-10] MEDS: FUROSEMIDE 40 MG/4 ML IV SCH (08:41)
[2020-04-10] MEDS: METHYLNALTREXONE 12 MG/0.6 ML SYR SQ SCH (08:41)
[2020-04-10] MEDS: INSULIN GLARGINE 100 UNITS/ML, PEN SQ-INSULIN SCH ×2 (08:42→21:29)
[2020-04-10] MEDS: POLYETHYLENE GLYCOL 17 GM PACKET PO PRN (10:31)
[2020-04-10] MEDS: LINEZOLID 600 MG TABLET PO SCH (16:36)
[2020-04-10] MEDS ORDERED: FUROSEMIDE 40 MG/4 ML IV SCH (17:00)
[2020-04-10] MEDS: DEXAMETHASONE 4 MG/ML, 1ML IVPush SCH (20:03)
[2020-04-10] MEDS: FENTANYL PF 2,500 MCG in SODIUM CHLORIDE 0.9% 200 ML IV PRN (21:30)
[2020-04-11] MEDS: PROPOFOL 100 ML IV PRN ×4 (00:06→22:13)
[2020-04-11] MEDS: PIPERACILLIN/TAZO/PMX 3.375GM 50 ML IV SCH ×4 (02:34→20:29)
[2020-04-11] MEDS: INSULIN LISPRO 100 UNITS/ML, PEN SQ-INSULIN SCH ×4 (03:36→21:05)
[2020-04-11 03:50] LABS: BASOPHILS % (AUTO) 0 % (0-1); EOSINOPHILS % (AUTO) 0 % (1-7); LYMPHOCYTES % (AUTO) 11 % (22-44); MEAN CORPUSCULAR HGB CONC 33.1 g/dL (32.4-35.8); MEAN PLATELET VOLUME 10.6 fL (7.4-10.4); MONOCYTES % (AUTO) 6 % (2-9); NEUTROPHILS % (AUTO) 83 % (42-75); PLATELET COUNT 351 x10^3/uL (130-400); RED BLOOD COUNT 4.57 x10^6/uL (3.82-5.3); RED CELL DISTRIBUTION WIDTH 13.6 % (9.6-15.2)
[2020-04-11 03:53] LABS: MD NO
[2020-04-11 04:01] LABS: ALBUMIN 2.4 g/dL (3.4-5.0); ANION GAP 2 mmol/L (5-15); BILIRUBIN, DIRECT 0.3 mg/dL (0.1-0.2); CALCIUM 8.4 mg/dL (8.5-10.1); CHLORIDE 100 mmol/L (98-107)
[2020-04-11 04:04] LABS: ALANINE AMINOTRANSFERASE 36 U/L (12-78); ALKALINE PHOSPHATASE 72 U/L (45-117); BILIRUBIN,INDIRECT 0.3 mg/dL (0.0-2.0); BILIRUBIN,TOTAL 0.6 mg/dL (0.2-1.0); CREATININE 0.78 mg/dL (0.55-1.02); TOTAL PROTEIN 6.5 g/dL (6.4-8.2)
[2020-04-11] MEDS: LINEZOLID 600 MG TABLET PO SCH ×2 (05:05→17:03)
[2020-04-11] MEDS: PANTOPRAZOLE 40 MG IV IVPush SCH (05:13)
[2020-04-11] MEDS: ENOXAPARIN 40 MG/0.4 ML SQ SCH ×2 (08:20→20:30)
[2020-04-11] MEDS: RISPERIDONE 1 MG/ML ORAL SOLN PO SCH ×2 (10:07→20:59)
[2020-04-11] MEDS: INSULIN GLARGINE 100 UNITS/ML, PEN SQ-INSULIN SCH ×2 (11:03→21:05)
[2020-04-11] MEDS: ZIPRASIDONE 20 MG INJ IM PRN (16:51)
[2020-04-11] MEDS: FENTANYL PF 2,500 MCG in SODIUM CHLORIDE 0.9% 200 ML IV PRN (17:24)
[2020-04-11] MEDS: DEXAMETHASONE 4 MG/ML, 1ML IVPush SCH (20:30)
[2020-04-12] MEDS: PIPERACILLIN/TAZO/PMX 3.375GM 50 ML IV SCH ×4 (02:21→20:19)
[2020-04-12] MEDS: ZIPRASIDONE 20 MG INJ IM PRN ×4 (02:40→22:26)
[2020-04-12 04:20] LABS: BASOPHILS % (AUTO) 0 % (0-1); EOSINOPHILS % (AUTO) 0 % (1-7); LYMPHOCYTES % (AUTO) 10 % (22-44); MEAN CORPUSCULAR HEMOGLOBIN 28.6 pg (27.0-34.8); MEAN CORPUSCULAR HGB CONC 32.5 g/dL (32.4-35.8); MEAN PLATELET VOLUME 10.7 fL (7.4-10.4); MONOCYTES % (AUTO) 4 % (2-9); NEUTROPHILS % (AUTO) 86 % (42-75); PLATELET COUNT 268 x10^3/uL (130-400); RED BLOOD COUNT 4.39 x10^6/uL (3.82-5.3); RED CELL DISTRIBUTION WIDTH 13.9 % (9.6-15.2)
[2020-04-12 04:30] LABS: ALANINE AMINOTRANSFERASE 38 U/L (12-78); ALBUMIN 2.5 g/dL (3.4-5.0); ANION GAP 6 mmol/L (5-15); BILIRUBIN, DIRECT 0.3 mg/dL (0.1-0.2); CALCIUM 8.4 mg/dL (8.5-10.1); CHLORIDE 101 mmol/L (98-107); CREATININE 0.77 mg/dL (0.55-1.02); MD NO; TRIGLYCERIDES 222 mg/dL (50-200)
[2020-04-12 04:32] LABS: ALKALINE PHOSPHATASE 66 U/L (45-117); BILIRUBIN,TOTAL 0.9 mg/dL (0.2-1.0); TOTAL PROTEIN 6.5 g/dL (6.4-8.2)
[2020-04-12] MEDS: LINEZOLID 600 MG TABLET PO SCH ×2 (04:51→15:46)
[2020-04-12] MEDS: PANTOPRAZOLE 40 MG IV IVPush SCH (04:51)
[2020-04-12] MEDS: INSULIN LISPRO 100 UNITS/ML, PEN SQ-INSULIN SCH ×4 (05:06→22:34)
[2020-04-12 05:16] LABS: BILIRUBIN,INDIRECT 0.6 mg/dL (0.0-2.0)
[2020-04-12] MEDS: RISPERIDONE 1 MG/ML ORAL SOLN PO SCH ×2 (07:42→20:20)
[2020-04-12] MEDS: ENOXAPARIN 40 MG/0.4 ML SQ SCH ×2 (07:43→20:20)
[2020-04-12] MEDS: INSULIN GLARGINE 100 UNITS/ML, PEN SQ-INSULIN SCH ×2 (11:16→22:35)
[2020-04-12] MEDS ORDERED: FUROSEMIDE 40 MG/4 ML IV ONE (12:30)
[2020-04-12] MEDS: DEXAMETHASONE 4 MG/ML, 1ML IVPush SCH (20:20)
[2020-04-13] MEDS: PIPERACILLIN/TAZO/PMX 3.375GM 50 ML IV SCH ×4 (02:17→19:43)
[2020-04-13] MEDS: LINEZOLID 600 MG TABLET PO SCH ×2 (04:43→17:30)
[2020-04-13] MEDS: PANTOPRAZOLE 40 MG IV IVPush SCH (04:44)
[2020-04-13] MEDS: INSULIN LISPRO 100 UNITS/ML, PEN SQ-INSULIN SCH ×4 (04:44→20:00)
[2020-04-13 05:03] LABS: BASOPHILS % (AUTO) 1 % (0-1); EOSINOPHILS % (AUTO) 1 % (1-7); LYMPHOCYTES % (AUTO) 17 % (22-44); MEAN CORPUSCULAR HEMOGLOBIN 28.7 pg (27.0-34.8); MEAN CORPUSCULAR HGB CONC 32.4 g/dL (32.4-35.8); MEAN PLATELET VOLUME 10.8 fL (7.4-10.4); MONOCYTES % (AUTO) 7 % (2-9); NEUTROPHILS % (AUTO) 75 % (42-75); PLATELET COUNT 271 x10^3/uL (130-400); RED BLOOD COUNT 4.49 x10^6/uL (3.82-5.3); RED CELL DISTRIBUTION WIDTH 13.8 % (9.6-15.2)
[2020-04-13 05:09] LABS: ALANINE AMINOTRANSFERASE 36 U/L (12-78); ALBUMIN 2.6 g/dL (3.4-5.0); ANION GAP 7 mmol/L (5-15); BILIRUBIN, DIRECT 0.3 mg/dL (0.1-0.2); CALCIUM 8.7 mg/dL (8.5-10.1); CHLORIDE 105 mmol/L (98-107); CREATININE 0.81 mg/dL (0.55-1.02)
[2020-04-13 05:12] LABS: ALKALINE PHOSPHATASE 71 U/L (45-117); BILIRUBIN,INDIRECT 0.8 mg/dL (0.0-2.0); BILIRUBIN,TOTAL 1.1 mg/dL (0.2-1.0); TOTAL PROTEIN 6.8 g/dL (6.4-8.2)
[2020-04-13 05:22] LABS: MD NO
[2020-04-13] MEDS: RISPERIDONE 1 MG/ML ORAL SOLN PO SCH ×2 (07:46→19:55)
[2020-04-13] MEDS: ENOXAPARIN 40 MG/0.4 ML SQ SCH ×2 (07:47→19:49)
[2020-04-13] MEDS: POTASSIUM CHLORIDE 10% 40 MEQ/30 ML UDC PO SCH ×2 (09:00→20:14)
[2020-04-13] MEDS ORDERED: FUROSEMIDE 40 MG/4 ML IV ONE (09:00)
[2020-04-13] MEDS: FAMOTIDINE 20 MG/2 ML IVPush SCH ×2 (09:00→19:52)
[2020-04-13] MEDS ORDERED: POTASSIUM CHLORIDE 40 MEQ in SODIUM CHLORIDE 0.9% 100 ML IV ONE ×2 (11:00→20:30)
[2020-04-13] MEDS: OXYcodone IR 5MG TABLET PO PRN (11:13)
[2020-04-13] MEDS: INSULIN GLARGINE 100 UNITS/ML, PEN SQ-INSULIN SCH ×2 (11:17→20:01)
[2020-04-13] MEDS: ZIPRASIDONE 20 MG INJ IM PRN (12:37)
[2020-04-13] MEDS: FUROSEMIDE 40 MG/4 ML IV SCH (17:30)
[2020-04-13] MEDS: DEXAMETHASONE 4 MG/ML, 1ML IVPush SCH (19:53)
[2020-04-14] VITALS (7 sets, daily range): BP systolic 101–125; BP diastolic 68–80
[2020-04-14] MEDS: PIPERACILLIN/TAZO/PMX 3.375GM 50 ML IV SCH (02:28)
[2020-04-14] MEDS: INSULIN LISPRO 100 UNITS/ML, PEN SQ-INSULIN SCH ×4 (03:00→20:44)
[2020-04-14] MEDS: LINEZOLID 600 MG TABLET PO SCH (03:29)
[2020-04-14 04:07] LABS: BASOPHILS % (AUTO) 1 % (0-1); EOSINOPHILS % (AUTO) 0 % (1-7); LYMPHOCYTES % (AUTO) 13 % (22-44); MEAN CORPUSCULAR HEMOGLOBIN 29.5 pg (27.0-34.8); MEAN CORPUSCULAR HGB CONC 33.7 g/dL (32.4-35.8); MEAN PLATELET VOLUME 10.8 fL (7.4-10.4); MONOCYTES % (AUTO) 6 % (2-9); NEUTROPHILS % (AUTO) 80 % (42-75); PLATELET COUNT 275 x10^3/uL (130-400); RED BLOOD COUNT 4.65 x10^6/uL (3.82-5.3); RED CELL DISTRIBUTION WIDTH 13.9 % (9.6-15.2)
[2020-04-14 04:10] LABS: ALANINE AMINOTRANSFERASE 40 U/L (12-78); ANION GAP 5 mmol/L (5-15); BILIRUBIN, DIRECT 0.3 mg/dL (0.1-0.2); CALCIUM 9.1 mg/dL (8.5-10.1); CHLORIDE 107 mmol/L (98-107); CREATININE 0.88 mg/dL (0.55-1.02)
[2020-04-14 04:12] LABS: ALKALINE PHOSPHATASE 72 U/L (45-117); BILIRUBIN,INDIRECT 0.9 mg/dL (0.0-2.0); BILIRUBIN,TOTAL 1.2 mg/dL (0.2-1.0); TOTAL PROTEIN 7.6 g/dL (6.4-8.2)
[2020-04-14 05:45] LABS: MD SCAN
[2020-04-14] MEDS: FUROSEMIDE 40 MG/4 ML IV SCH (07:36)
[2020-04-14] MEDS: ENOXAPARIN 40 MG/0.4 ML SQ SCH ×2 (07:37→20:44)
[2020-04-14] MEDS: FAMOTIDINE 20 MG/2 ML IVPush SCH ×2 (07:37→20:44)
[2020-04-14] MEDS: RISPERIDONE 1 MG/ML ORAL SOLN PO SCH ×2 (07:45→20:45)
[2020-04-14] MEDS: INSULIN GLARGINE 100 UNITS/ML, PEN SQ-INSULIN SCH (10:40)
--- NOTE | 2020-04-14 22:38 | NUR ---
CLEO WILLIAMSON - Fall Risk Medication(s) present and receiving anticoagulants.
[2020-04-15] VITALS (7 sets, daily range): BP systolic 97–123; BP diastolic 65–80
[2020-04-15 05:04] LABS: BASOPHILS % (AUTO) 1 % (0-1); EOSINOPHILS % (AUTO) 2 % (1-7); LYMPHOCYTES % (AUTO) 20 % (22-44); MEAN CORPUSCULAR HEMOGLOBIN 29.5 pg (27.0-34.8); MEAN CORPUSCULAR HGB CONC 32.9 g/dL (32.4-35.8); MEAN PLATELET VOLUME 10.6 fL (7.4-10.4); MONOCYTES % (AUTO) 10 % (2-9); NEUTROPHILS % (AUTO) 68 % (42-75); PLATELET COUNT 247 x10^3/uL (130-400); RED BLOOD COUNT 4.78 x10^6/uL (3.82-5.3); RED CELL DISTRIBUTION WIDTH 14.3 % (9.6-15.2)
[2020-04-15 05:07] LABS: MD NO
[2020-04-15 05:14] LABS: ANION GAP 8 mmol/L (5-15); CALCIUM 9.2 mg/dL (8.5-10.1); CHLORIDE 104 mmol/L (98-107); CREATININE 1.05 mg/dL (0.55-1.02)
[2020-04-15] MEDS: INSULIN LISPRO 100 UNITS/ML, PEN SQ-INSULIN SCH (07:30)
[2020-04-15] MEDS: RISPERIDONE 1 MG/ML ORAL SOLN PO SCH ×2 (09:10→19:47)
[2020-04-15] MEDS: FAMOTIDINE 20 MG/2 ML IVPush SCH (09:11)
[2020-04-15] MEDS: ENOXAPARIN 40 MG/0.4 ML SQ SCH ×2 (09:13→19:47)
[2020-04-15] MEDS: metFORMIN XR 500 MG TAB.ER.24H PO SCH (11:15)
[2020-04-15] MEDS: ACETAMINOPHEN 325 MG TABLET PO PRN (13:49)
[2020-04-15] MEDS: OXYcodone IR 5MG TABLET PO PRN (19:48)
[2020-04-16 00:37] VITALS: BP 108/71
[2020-04-16 06:19] VITALS: BP 89/59
[2020-04-16 06:25] VITALS: BP 106/74
[2020-04-16 06:38] LABS: BASOPHILS % (AUTO) 1 % (0-1); EOSINOPHILS % (AUTO) 2 % (1-7); LYMPHOCYTES % (AUTO) 26 % (22-44); MEAN CORPUSCULAR HEMOGLOBIN 29.7 pg (27.0-34.8); MEAN CORPUSCULAR HGB CONC 33.4 g/dL (32.4-35.8); MEAN PLATELET VOLUME 11.5 fL (7.4-10.4); MONOCYTES % (AUTO) 10 % (2-9); NEUTROPHILS % (AUTO) 61 % (42-75); PLATELET COUNT 236 x10^3/uL (130-400); RED BLOOD COUNT 4.74 x10^6/uL (3.82-5.3); RED CELL DISTRIBUTION WIDTH 14.5 % (9.6-15.2)
[2020-04-16 06:48] LABS: ANION GAP 8 mmol/L (5-15); CALCIUM 9.2 mg/dL (8.5-10.1); CHLORIDE 105 mmol/L (98-107)
[2020-04-16 06:52] LABS: ALANINE AMINOTRANSFERASE 37 U/L (12-78); ALKALINE PHOSPHATASE 81 U/L (45-117); BILIRUBIN,TOTAL 0.8 mg/dL (0.2-1.0); TOTAL PROTEIN 7.4 g/dL (6.4-8.2)
[2020-04-16 07:42] LABS: MD SCAN
[2020-04-16] MEDS ORDERED: FAMOTIDINE 20 MG/2 ML IVPush SCH (09:00)
[2020-04-16] MEDS: ENOXAPARIN 40 MG/0.4 ML SQ SCH ×2 (09:02→20:18)
[2020-04-16] MEDS: RISPERIDONE 1 MG/ML ORAL SOLN PO SCH ×2 (09:03→20:18)
[2020-04-16] MEDS: metFORMIN XR 500 MG TAB.ER.24H PO SCH (09:03)
[2020-04-16 12:09] VITALS: BP 96/65
[2020-04-16 19:34] VITALS: BP 115/77
[2020-04-16] MEDS: ACETAMINOPHEN 325 MG TABLET PO PRN (20:17)
[2020-04-16] MEDS: FAMOTIDINE 20 MG/2 ML IVPush SCH (20:18)
[2020-04-17 01:57] VITALS: BP 100/67
[2020-04-17 06:55] VITALS: BP 121/71
[2020-04-17] MEDS: FAMOTIDINE 20 MG/2 ML IVPush SCH (10:18)
[2020-04-17] MEDS: ENOXAPARIN 40 MG/0.4 ML SQ SCH (10:18)
[2020-04-17] MEDS: metFORMIN XR 500 MG TAB.ER.24H PO SCH (10:18)
[2020-04-17] MEDS: RISPERIDONE 1 MG/ML ORAL SOLN PO SCH (10:57)
[2020-04-17 12:22] VITALS: BP 106/73
[2020-04-17] MEDS ORDERED: METF500T3 PO (13:43)
[2020-04-17] MEDS ORDERED: FAMO20TA7 PO (13:45)
[2020-04-17] MEDS ORDERED: ATOR20TA37 PO (13:46)
[2020-04-17] MEDS ORDERED: FAMOTIDINE 20 MG TABLET PO SCH (21:00)
== END 2020-04-17 18:54 | disposition home health service (06) | DRG 870 ==
LOC: ED 18:34 → EDIP 21:01 → ICU 22:51 → 3N 04-14 13:07
PROVIDERS: ADMIT Internal Medicine; ATTEND Hospitalist
PROC: 5A09357 Assistance with Respiratory Ventilation, Less than 24 Consecutive Hours, Continuous Positive Airway Pressure (ICD-10-PCS; 2020-03-30)
PROC: 0T9B70Z Drainage of Bladder with Drainage Device, Via Natural or Artificial Opening (ICD-10-PCS; principal; 2020-03-31)
PROC: 5A1955Z Respiratory Ventilation, Greater than 96 Consecutive Hours (ICD-10-PCS; 2020-03-31)
PROC: 0BH17EZ Insertion of Endotracheal Airway into Trachea, Via Natural or Artificial Opening (ICD-10-PCS; 2020-03-31)
PROC: 02HV33Z Insertion of Infusion Device into Superior Vena Cava, Percutaneous Approach (ICD-10-PCS; 2020-04-01)
PROC: 03HY33Z Insertion of Infusion Device into Upper Artery, Percutaneous Approach (ICD-10-PCS; 2020-04-01)
DX: A41.9 Sepsis, unspecified organism (principal); J15.9 Unspecified bacterial pneumonia; J80 Acute respiratory distress syndrome; J81.0 Acute pulmonary edema; N17.0 Acute kidney failure with tubular necrosis; U07.1 COVID-19; J12.82 Pneumonia due to coronavirus disease 2019; G93.40 Encephalopathy, unspecified; N39.0 Urinary tract infection, site not specified; Z99.11 Dependence on respirator [ventilator] status; E11.9 Type 2 diabetes mellitus without complications; E66.9 Obesity, unspecified; F15.10 Other stimulant abuse, uncomplicated; F41.9 Anxiety disorder, unspecified; Z66 Do not resuscitate; Z78.1 Physical restraint status; Z68.35 Body mass index [BMI] 35.0-35.9, adult; Z87.891 Personal history of nicotine dependence
CPT/HCPCS: 36415; 36600; 71045; 74018; 80048; 80053; 80061; 80074; 80076; 80202; 80307; 81001; 82247; 82803; 82962; 83036; 83605; 83735; 83880; 84145; 84443; 84478; 84484; 85025; 85379; 85384; 85610; 87040; 87070; 87081; 87086; 87205; 87400; 87806; 87880; 93005; 94002; 94003; 94150; 94660; 96365; 99291; G0378; J0456; J0696; J1100; J1650; J1940; J2250; J2543; J2704; J3010; J3370; J3411; J3480; J3486; J7030; C9113; G0475; J0360; J1815; J2370; J7040; J7050; U0003